=== PATIENT | female | born 1965 | race Two or more races ===

== ENCOUNTER 2024-05-29 17:50 | Emergency (ER) | payer OTHER ==
[~2024-05-29] VITALS: Ht 157.5 cm; Wt 121.1 kg
[2024-05-29] MEDS ORDERED: TOPROL XL50 M1 PO (18:19)
[2024-05-29] MEDS ORDERED: DIOVAN40 MG PO (18:19)
[2024-05-29] MEDS ORDERED: SYNTHROID112 MCG PO (18:19)
[2024-05-29 18:20] VITALS: BP 100/63; O2SAT 98
[2024-05-29] MEDS ORDERED: KETOROLAC TROMETHAMINE 60 MG VIAL IM ONE ×2 (20:30→20:33)
[2024-05-29] MEDS ORDERED: DICLOFENAC SODI50 MG PO (22:00)
== END 2024-05-29 22:34 | disposition home or self-care (01) ==
LOC: ER 17:52
DX: S93.402A Sprain of unspecified ligament of left ankle, initial encounter (principal); S60.222A Contusion of left hand, initial encounter; S60.212A Contusion of left wrist, initial encounter; S90.32XA Contusion of left foot, initial encounter; W18.39XA Other fall on same level, initial encounter; Y93.K1 Activity, walking an animal; Y92.89 Other specified places as the place of occurrence of the external cause; Y99.9 Unspecified external cause status; M77.32 Calcaneal spur, left foot; I10 Essential (primary) hypertension; E03.9 Hypothyroidism, unspecified